=== PATIENT | female | born 1950 | race Caucasian/White ===

== ENCOUNTER 2022-08-28 06:52 | Day surgery (SDC) | payer MEDICARE, BC ==
[~2022-08-28 06:52] MED LIST: Lactated Ringers 1,000 ML IV SCH; Lidocaine 1%/Sod Bicarbonate in NS 8.4% 1 ML Syringe IDERM PRN; Sodium Chloride 0.9% 10 ML Syringe FLUSH PRN; Sodium Chloride 0.9% 10 ML Syringe FLUSH SCH
[2022-08-28] MEDS ORDERED: Lidocaine 1% 4 ML ONE (07:49)
[2022-08-28] MEDS ORDERED: Propofol 200 MG/20 ML SDV ONE (07:49)
[2022-08-28 09:15] VITALS: BP 122/71; PULSE 75
== END 2022-08-28 08:59 | disposition home or self-care (01) ==
LOC: JD.SDS 06:52
PROVIDERS: ATTEND Surgery
DX: Z12.11 Encounter for screening for malignant neoplasm of colon (principal); K64.4 Residual hemorrhoidal skin tags; K64.8 Other hemorrhoids; I10 Essential (primary) hypertension; E78.00 Pure hypercholesterolemia, unspecified; E03.9 Hypothyroidism, unspecified; M81.0 Age-related osteoporosis without current pathological fracture; N32.89 Other specified disorders of bladder; J30.9 Allergic rhinitis, unspecified; R73.09 Other abnormal glucose; Z79.899 Other long term (current) drug therapy; Z98.890 Other specified postprocedural states
CPT/HCPCS: G0105; J2704; J7120; J3490